=== PATIENT | female | born 1995 | race Caucasian/White ===

== ENCOUNTER → 2019-07-19 | Outpatient (REF) | payer BC ==
[~2019-07-19] MED LIST: IRON27TA2 PO; PRENTAB55 PO; TUMS500C PO; ZANT150T40 PO
== END ==
LOC: M LAB REF 17:13
PROVIDERS: ATTEND Advanced Practice Midwife
DX: Z34.83 Encounter for supervision of other normal pregnancy, third trimester (principal)

== ENCOUNTER 2019-08-10 05:22 | Inpatient (IN) | payer SELFPAY ==
[~2019-08-10] VITALS: Ht 154.9 cm; Wt 73.0 kg
[2019-08-10] VITALS (8 sets, daily range): BP systolic 107–125; BP diastolic 56–75
[2019-08-10] MEDS ORDERED: BICITRA 30ML SOLN UDC PO ONE (06:00)
[2019-08-10] MEDS ORDERED: LR 800 ML IV ONE (06:00)
[2019-08-10] MEDS ORDERED: ceFAZolin SOD 2 GM in IV 1 EA IV ONE (06:00)
[2019-08-10 06:24] LABS: HEMATOCRIT 31.1 % (36.0-47.0); HEMOGLOBIN 9.8 g/dl (12.0-15.5); MEAN CORPUSCULAR HEMOGLOBIN 27.1 pg (27.0-33.0); MEAN CORPUSCULAR HGB CONC 31.5 g/dl (32.0-36.5); MEAN CORPUSCULAR VOLUME 85.9 fl (80.0-96.0); PLATELET COUNT, AUTOMATED 275 10^3/uL (150-450); RED BLOOD COUNT 3.62 10^6/uL (4.00-5.40); WHITE BLOOD COUNT 8.1 10^3/uL (4.0-10.0)
[2019-08-10] MEDS ORDERED: LR 1,000 ML IV SCH ×3 (07:00→10:00)
[2019-08-10] MEDS ORDERED: OXYTOCIN INJ 10 UNITS/ML VIAL (J2590) As Ordered ONE (07:06)
[2019-08-10] MEDS ORDERED: MORPHINE PRES-FREE INJ 10 MG/10 ML VIAL (J2274) As Ordered ONE (07:15)
[2019-08-10] MEDS ORDERED: ACETAMINOPHEN 1000MG 100ML IV BTL (OFIRMEV) (J0131 PER 10MG) As Ordered ONE (08:08)
[2019-08-10] MEDS ORDERED: KETOROLAC 60 MG/2 ML VIAL (J1885) As Ordered ONE (08:31)
[2019-08-10] MEDS: PRENATAL VITAMINS CHEWABLE TABLET PO SCH (09:00)
[2019-08-10] MEDS ORDERED: OXYTOCIN DRIP 30 UNITS in IV 1 EA IV SCH (09:02)
[2019-08-10] MEDS ORDERED: NORCO, ANEXSIA 5/325MG TABLET (HYDROcodone/ACETAMINOPHEN) PO PRN ×2 (09:15→09:30)
[2019-08-10] MEDS ORDERED: MEPERIDINE INJ 25 MG/ML VIAL (J2175) IM PRN (09:15)
[2019-08-10] MEDS ORDERED: OXYTOCIN 30 UNITS IN 0.9% NaCl 500ML IV BAG (J2590) As Ordered ONE (09:25)
[2019-08-10] MEDS ORDERED: ONDANSETRON 4MG/2ML VIAL (J2405) IV PRN ×2 (09:30→10:00)
[2019-08-10] MEDS ORDERED: fentaNYL 100 MCG/2 ML INJECTION (J3010) IV PRN ×2 (09:30→10:38)
[2019-08-10] MEDS ORDERED: METOCLOPRAMIDE INJ 10MG/2ML VIAL (J2765) IV PRN (09:30)
[2019-08-10] MEDS ORDERED: fentaNYL 100 MCG/2 ML INJECTION (J3010) As Ordered ONE (09:37)
[2019-08-10] MEDS ORDERED: ONDANSETRON 4MG/2ML VIAL (J2405) As Ordered ONE (09:44)
[2019-08-10] MEDS ORDERED: MEASLES,MUMPS,RUBELLA VACCINE INJ (MMR-II) (90707) SC SCH (10:00)
[2019-08-10] MEDS ORDERED: RHOGAM 300 MCG (1500 IU) INJ (J2790) IM SCH (10:00)
[2019-08-10] MEDS ORDERED: DOCUSATE SODIUM 100 MG CAP PO PRN (10:00)
--- NOTE | 2019-08-10 10:10 | RO ---
DATE OF PROCEDURE: 08/10/2019 PREPROCEDURE DIAGNOSES: 39 weeks, prior section times one, undesired fertility. POSTPROCEDURE DIAGNOSES: 39 weeks, prior section times one, undesired fertility. PROCEDURE: Repeat low transverse section and bilateral tubal ligation. SURGEON: Dr. Klever Zavaleta [employer] ARCHITECT: Dieudonne Markham DO ANESTHESIA: Spinal. ESTIMATED BLOOD LOSS: 500 mL. URINE OUTPUT: 100 mL. FINDINGS: 7 pound 5 ounce female infant, scores 8 and 9, peritoneal window in the lower uterine segment. Normal fallopian tubes and ovaries. DESCRIPTION OF PROCEDURE: The patient was taken to the operating room where spinal anesthesia was induced. She was prepped and draped in sterile fashion in the supine position. A Flores catheter was placed. A Pfannenstiel skin incision was made with the scalpel and carried through to the fascia. The fascia was nicked and extended. The fascia was dissected off the rectus muscles. The peritoneal cavity was entered. A bladder flap was created. Lower uterine segment was noted to have a peritoneal window where the uterus could be seen directly through the lower uterine segment. An incision was created and membranes ruptured of clear fluid. The was delivered from the vertex position without difficulty. The cord was doubly clamped and cut. The infant was handed off to the awaiting nurses. The placenta was expressed. The uterus was cleared of clots and debris. The uterine incision was closed with #0 Vicryl in a running locked fashion. Due to the nature of the lower uterine segment, a second imbricating layer was not placed; however, several [id number] sutures were placed for hemostasis. Attention was turned to the fallopian tubes. The fallopian tubes were grasped at their mid portion with a [place] clamp. A window was created in the broad ligament. A free tie of #3-0 chromic suture was placed around a segment of tube on either side of the [place] clamp. A knuckle of tube was excised bilaterally. The uterus was placed back into the abdominal cavity. The peritoneum was closed with #2-0 Vicryl in a running fashion. The fascia was closed with #0 Vicryl in a running fashion. The deep layer was irrigated and closed with #2-0 chromic. The skin was closed with #4-0 Monocryl subcuticular sutures. Sponge, instrument and needle counts were correct. Dieudonne Markham DO, assisted in all aspects of the procedure from beginning to end. He helped create each layer of the incision. He helped with the hysterotomy and helped close all layers.
[2019-08-10] MEDS: NORCO, ANEXSIA 5/325MG TABLET (HYDROcodone/ACETAMINOPHEN) PO PRN ×3 (11:30→23:34)
[2019-08-10] MEDS ORDERED: HYDROMORPHONE HCL 0.5 MG/ 0.5 ML SYRINGE (J1170 PER 1) IV PRN ×3 (12:30→12:45)
[2019-08-10] MEDS ORDERED: HYDROmorphone HCL 2 MG/ML 1ML VIAL (J1170) IV PRN (12:30)
[2019-08-10] MEDS: KETOROLAC 30 MG/ML VIAL (J1885) IV SCH ×2 (14:57→20:33)
[2019-08-11 02:16] VITALS: BP 113/63
[2019-08-11] MEDS: KETOROLAC 30 MG/ML VIAL (J1885) IV SCH (03:18)
[2019-08-11 06:02] VITALS: BP 116/61
[2019-08-11 07:28] LABS: HEMATOCRIT 28.1 % (36.0-47.0); HEMOGLOBIN 8.6 g/dl (12.0-15.5); MEAN CORPUSCULAR HEMOGLOBIN 26.9 pg (27.0-33.0); MEAN CORPUSCULAR HGB CONC 30.6 g/dl (32.0-36.5); MEAN CORPUSCULAR VOLUME 87.8 fl (80.0-96.0); PLATELET COUNT, AUTOMATED 198 10^3/uL (150-450); WHITE BLOOD COUNT 8.6 10^3/uL (4.0-10.0)
[2019-08-11] MEDS: PRENATAL VITAMINS CHEWABLE TABLET PO SCH (07:40)
[2019-08-11] MEDS: NORCO, ANEXSIA 5/325MG TABLET (HYDROcodone/ACETAMINOPHEN) PO PRN ×4 (07:41→22:41)
[2019-08-11] MEDS: SIMETHICONE 80 MG CHEW TAB PO PRN ×2 (10:39→17:48)
[2019-08-11] MEDS: IBUPROFEN 800 MG TAB PO SCH ×2 (10:43→18:41)
[2019-08-11 13:07] VITALS: BP 114/63
[2019-08-11 14:11] VITALS: BP 119/64
[2019-08-11 17:34] VITALS: BP 121/66
[2019-08-11 23:00] VITALS: BP 117/61
[2019-08-11] MEDS ORDERED: MOM 30ML SUSPENSION UDC PO PRN (23:00)
[2019-08-12 02:00] VITALS: BP 119/57
[2019-08-12] MEDS: IBUPROFEN 800 MG TAB PO SCH ×2 (03:19→10:41)
[2019-08-12 05:29] VITALS: BP 114/63
[2019-08-12] MEDS: NORCO, ANEXSIA 5/325MG TABLET (HYDROcodone/ACETAMINOPHEN) PO PRN (05:37)
[2019-08-12] MEDS ORDERED: HYDR-4571 PO (08:53)
[2019-08-12] MEDS ORDERED: IBUP80TA PO (08:53)
[2019-08-12] MEDS ORDERED: COLA100C5 PO (08:53)
[2019-08-12] MEDS: PRENATAL VITAMINS CHEWABLE TABLET PO SCH (10:41)
--- NOTE | 2019-08-13 06:16 | DSES ---
DATE OF ADMISSION: 08/10/2019 DATE OF DISCHARGE: 08/12/2019 DISCHARGE DIAGNOSIS: 1. Repeat section with undesired fertility. PROCEDURES PERFORMED: 1. section. 2. Bilateral tubal ligation. 3. Spinal anesthesia. CONDITION ON DISCHARGE: Stable. HISTORY AND HOSPITAL COURSE: Ms. Stanley presented for scheduled section at 39 weeks which was uncomplicated productive of live born female , Apgars 8 and 9, weight was 7 pounds 5 ounces. Estimated blood loss was 500 mL. She did well post operatively. By postoperative day 2 she had met all discharge criteria. She was discharged home in stable condition. PHYSICAL EXAMINATION ON THE DAY OF DISCHARGE: VITAL SIGNS: Stable. She is afebrile. ABDOMEN: Her abdomen was soft, appropriately tender. Her incision was dressed. Extremities: Negative for calf tenderness. DISCHARGE MEDICATIONS: - Vicodin - ibuprofen DISCHARGE INSTRUCTIONS: 1. She was instructed to remove her dressing in 5-7 days. and 05/07 days. 2. She was to remain on pelvic rest. 3. Follow up in 2 weeks for incision check. 4. Report severe pain, heavy vaginal bleeding, fever or incisional issues.
== END 2019-08-12 14:37 | disposition home or self-care (01) | DRG 540 ==
LOC: M LDI 05:22 → EDUNIT# 07:30 → M OBS 10:55
PROVIDERS: ADMIT Specialist; ATTEND Specialist
PROC: 0UB70ZZ Excision of Bilateral Fallopian Tubes, Open Approach (ICD-10-PCS; 2019-08-10)
PROC: 10D00Z1 Extraction of Products of Conception, Low, Open Approach (ICD-10-PCS; principal; 2019-08-10 07:30)
DX: O34.211 Maternal care for low transverse scar from previous cesarean delivery (principal); Z3A.39 39 weeks gestation of pregnancy; Z37.0 Single live birth; Z30.2 Encounter for sterilization; O99.02 Anemia complicating childbirth; D64.9 Anemia, unspecified

== ENCOUNTER → 2019-12-30 | Outpatient (CLI) | payer OTHER, SELFPAY ==
[~2019-12-30] MED LIST changes: +COLA100C5 PO; +HYDR-4571 PO; +IBUP80TA PO
[2019-12-30 17:40] LABS: BASO % 0.4 % (0.0-1.0); EOS # 0.1 10^3/uL (0.0-0.5); EOS % 1.2 % (0.0-3.0); HEMATOCRIT 40.6 % (36.0-47.0); HEMOGLOBIN 12.7 g/dl (12.0-15.5); LYMPH # 1.5 10^3/uL (1.5-5.0); LYMPH % 19.5 % (24.0-44.0); MEAN CORPUSCULAR HEMOGLOBIN 27.3 pg (27.0-33.0); MEAN CORPUSCULAR HGB CONC 31.3 g/dl (32.0-36.5); MEAN CORPUSCULAR VOLUME 87.1 fl (80.0-96.0); MONO # 0.3 10^3/uL (0.0-0.8); MONO % 4.6 % (0.0-5.0); NEUTROPHILS # 5.5 10^3/uL (1.5-8.5); PLATELET COUNT, AUTOMATED 377 10^3/uL (150-450); RED BLOOD COUNT 4.66 10^6/uL (4.00-5.40); WHITE BLOOD COUNT 7.4 10^3/uL (4.0-10.0)
[2019-12-30 17:51] LABS: ALBUMIN 4.1 GM/DL (3.2-5.2); ALT/SGPT 30 U/L (12-78); BILIRUBIN,TOTAL 0.6 MG/DL (0.2-1.0); BLOOD UREA NITROGEN 12 MG/DL (7-18); CALCIUM LEVEL 8.7 MG/DL (8.5-10.1); CARBON DIOXIDE LEVEL 28 MEQ/L (21-32); CHLORIDE LEVEL 109 MEQ/L (98-107); CREATININE FOR GFR 0.69 MG/DL (0.55-1.30); FREE T4 1.02 NG/DL (0.76-1.46); GLOMERULAR FILTRATION RATE > 60.0 (>60); GLUCOSE, FASTING 83 MG/DL (70-100); IRON (FE) 36 UG/DL (50-170); POTASSIUM SERUM 4.2 MEQ/L (3.5-5.1); SODIUM LEVEL 143 MEQ/L (136-145); THYROID STIMULATING HORMONE 0.748 uIU/ML (0.358-3.740); TOTAL IRON BINDING CAPACITY 448 UG/DL (250-450); TOTAL PROTEIN 7.6 GM/DL (6.4-8.2)
== END ==
LOC: M ADAMS 15:57
PROVIDERS: ATTEND Physician Assistant
DX: D64.9 Anemia, unspecified (principal); R53.83 Other fatigue

== ENCOUNTER → 2020-03-21 | Outpatient (CLI) | payer OTHER | LOC: M LABSMTC 12:57 | PROVIDERS: ATTEND Family Medicine | DX: Z11.59 Encounter for screening for other viral diseases (principal) | CPT/HCPCS: C8903; U0002 ==

== ENCOUNTER 2020-05-16 09:27 | Emergency (ER) | payer BC, OTHER ==
[~2020-05-16] VITALS: Ht 154.9 cm; Wt 58.6 kg
[2020-05-16] MEDS ORDERED: NS 1,000 ML IV ONE (09:45)
[2020-05-16 10:29] LABS: BASO % 0.4 % (0.0-1.0); EOS # 0.2 10^3/uL (0.0-0.5); EOS % 2.5 % (0.0-3.0); HEMATOCRIT 36.4 % (36.0-47.0); HEMOGLOBIN 11.6 g/dl (12.0-15.5); LYMPH # 2.2 10^3/uL (1.5-5.0); LYMPH % 25.1 % (24.0-44.0); MEAN CORPUSCULAR HEMOGLOBIN 28.9 pg (27.0-33.0); MEAN CORPUSCULAR HGB CONC 31.9 g/dl (32.0-36.5); MEAN CORPUSCULAR VOLUME 90.5 fl (80.0-96.0); MONO # 0.6 10^3/uL (0.0-0.8); MONO % 6.5 % (0.0-5.0); NEUTROPHILS # 5.8 10^3/uL (1.5-8.5); NEUTROPHILS % 65.3 % (36.0-66.0); PLATELET COUNT, AUTOMATED 330 10^3/uL (150-450); RED BLOOD COUNT 4.02 10^6/uL (4.00-5.40); WHITE BLOOD COUNT 8.9 10^3/uL (4.0-10.0)
[2020-05-16] MEDS ORDERED: PRED20TA (10:32)
[2020-05-16] MEDS ORDERED: CEFD1CAP8 (10:32)
[2020-05-16] MEDS ORDERED: PHEN-815 PO (10:32)
[2020-05-16 10:46] LABS: BLOOD UREA NITROGEN 9 MG/DL (7-18); CALCIUM LEVEL 8.7 MG/DL (8.5-10.1); CARBON DIOXIDE LEVEL 25 MEQ/L (21-32); CHLORIDE LEVEL 109 MEQ/L (98-107); CREATININE FOR GFR 0.65 MG/DL (0.55-1.30); GLOMERULAR FILTRATION RATE > 60.0 (>60); GLUCOSE, FASTING 85 MG/DL (70-100); POTASSIUM SERUM 3.5 MEQ/L (3.5-5.1); SODIUM LEVEL 142 MEQ/L (136-145)
[2020-05-16 10:51] LABS: HCG, SERUM QUALITATIVE NEGATIVE (NEGATIVE)
[2020-05-16 12:02] VITALS: BP 115/59
--- NOTE | 2020-05-16 12:20 | REP ---
CHEST, SINGLE VIEW: There is no evidence of acute infiltrate. No pleural effusion is seen. The heart is normal in size. The mediastinal silhouette is unremarkable. The visualized osseous structures are intact. IMPRESSION: No acute pulmonary disease. Electronically Signed by Vineet Guzman MD 05/18/2020 11:09 P
--- NOTE | 2020-05-17 16:02 | ECGEPIP ---
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
== END 2020-05-16 12:10 | disposition home or self-care (01) ==
LOC: M ED 09:27
DX: R05 Cough (principal); R51 Headache; B34.9 Viral infection, unspecified; D64.9 Anemia, unspecified; J30.2 Other seasonal allergic rhinitis; Z79.899 Other long term (current) drug therapy; Z91.018 Allergy to other foods; Z88.6 Allergy status to analgesic agent; Z88.5 Allergy status to narcotic agent

== ENCOUNTER 2021-05-10 18:34 | Emergency (ER) | payer BC, OTHER ==
[~2021-05-10] VITALS: Ht 152.4 cm; Wt 52.8 kg
[~2021-05-10 18:34] MED LIST changes: +CEFD1CAP8; +PHEN-815 PO; +PRED20TA
[2021-05-10 18:36] VITALS: BP 115/66
[2021-05-10] MEDS ORDERED: PROM50TA4 PO (18:52)
[2021-05-10] MEDS ORDERED: PEPT262T2 PO (18:52)
[2021-05-10] MEDS ORDERED: VITMTA PO (18:52)
[2021-05-10] MEDS ORDERED: NS 1,000 ML IV ONE (19:45)
[2021-05-10] MEDS ORDERED: ONDANSETRON 4MG/2ML VIAL IV ONE (19:45)
[2021-05-10] MEDS ORDERED: KETOROLAC 30 MG/ML 1ML VIAL IV ONE (19:45)
[2021-05-10 20:07] LABS: BASO % 0.1 % (0.0-1.0); HEMATOCRIT 39.5 % (36.0-47.0); HEMOGLOBIN 12.8 g/dl (12.0-15.5); LYMPH # 0.5 10^3/uL (1.5-5.0); LYMPH % 7.3 % (24.0-44.0); MEAN CORPUSCULAR HEMOGLOBIN 30.2 pg (27.0-33.0); MEAN CORPUSCULAR HGB CONC 32.4 g/dl (32.0-36.5); MEAN CORPUSCULAR VOLUME 93.2 fl (80.0-96.0); MONO # 0.2 10^3/uL (0.0-0.8); MONO % 3.2 % (2.0-8.0); NEUTROPHILS # 6.6 10^3/uL (1.5-8.5); PLATELET COUNT, AUTOMATED 247 10^3/uL (150-450); RED BLOOD COUNT 4.24 10^6/uL (4.00-5.40); WHITE BLOOD COUNT 7.4 10^3/uL (4.0-10.0)
[2021-05-10 20:32] LABS: ALBUMIN 3.6 GM/DL (3.2-5.2); BILIRUBIN,DIRECT 0.2 MG/DL (0.0-0.2); BILIRUBIN,TOTAL 0.9 MG/DL (0.2-1.0); TOTAL PROTEIN 6.8 GM/DL (6.4-8.2)
[2021-05-10] MEDS ORDERED: ISOVUE-370 76% 100ML VIAL As Ordered ONE (20:58)
--- NOTE | 2021-05-10 21:44 | REPVR ---
PROCEDURE INFORMATION: Exam: CT Abdomen And Pelvis With Contrast Exam date and time: 05/10/2021 9:05 PM Age: 25 years old Clinical indication: Abdominal pain; Localized; Right; Additional info: Right sided abd pain TECHNIQUE: Imaging protocol: Computed tomography of the abdomen and pelvis with contrast. Radiation optimization: All CT scans at this facility use at least one of these dose optimization techniques: automated exposure control; mA and/or kV adjustment per patient size (includes targeted exams where dose is matched to clinical indication); or iterative reconstruction. Contrast material: ISOVUE 370; Contrast volume: 100 ml; Contrast route: INTRAVENOUS (IV); COMPARISON: CR PORTABLE CHEST X-RAY 05/16/2020 11:09 AM FINDINGS: Liver: Normal. No mass. Gallbladder and bile ducts: Normal. No calcified stones. No ductal dilation. Pancreas: Normal. No ductal dilation. Spleen: Normal. No splenomegaly. Adrenal glands: Normal. No mass. Kidneys and ureters: Normal. No hydronephrosis. Stomach and bowel: Unremarkable. No obstruction. No mucosal thickening. Appendix: No evidence of appendicitis. Intraperitoneal space: There is minimal fluid in the cul-de-sac most likely physiologic. Clinical correlation to exclude other causes of cul-de-sac fluid suggested. Vasculature: Unremarkable. No abdominal aortic aneurysm. Lymph nodes: Unremarkable. No enlarged lymph nodes. Urinary bladder: Unremarkable as visualized. Reproductive: Unremarkable as visualized. Bones/joints: Unremarkable. No acute fracture. Soft tissues: Unremarkable. IMPRESSION: No acute findings. Electronically signed by: Fredo Herrera On 05/10/2021 21:43:18 PM
[2021-05-10] MEDS ORDERED: ONDA4TAB6 PO (22:06)
== END 2021-05-10 22:39 | disposition home or self-care (01) ==
LOC: M ED 18:34
DX: A08.4 Viral intestinal infection, unspecified (principal); J30.9 Allergic rhinitis, unspecified; Z91.018 Allergy to other foods; Z88.6 Allergy status to analgesic agent; Z88.5 Allergy status to narcotic agent
CPT/HCPCS: 74177; 80047; 80076; 81001; 83605; 83690; 84702; 85025; 96361; 96374; 96375; 99284; J1885; J2405; Q9967

== ENCOUNTER → 2024-07-20 | Outpatient (CLI) | payer BC ==
[~2024-07-20] MED LIST changes: -CEFD1CAP8; +CEFD1CAP9; +ONDA-282 PO; +PEPT262T2 PO; +PROM50TA4 PO; +VITMTA PO
[2024-07-20 09:16] LABS: BASO % 0.3 % (0.0-1.0); EOS # 0.1 10^3/uL (0.0-0.5); EOS % 0.8 % (0.0-3.0); HEMATOCRIT 36.5 % (36.0-47.0); LYMPH # 1.9 10^3/uL (1.5-5.0); LYMPH % 32.7 % (24.0-44.0); MEAN CORPUSCULAR HEMOGLOBIN 29.9 pg (27.0-33.0); MEAN CORPUSCULAR HGB CONC 32.9 g/dl (32.0-36.5); MEAN CORPUSCULAR VOLUME 90.8 fl (80.0-96.0); MONO # 0.6 10^3/uL (0.0-0.8); MONO % 9.3 % (2.0-8.0); NEUTROPHILS # 3.4 10^3/uL (1.5-8.5); NEUTROPHILS % 56.7 % (36.0-66.0); PLATELET COUNT, AUTOMATED 324 10^3/uL (150-450); RED BLOOD COUNT 4.02 10^6/uL (4.00-5.40); WHITE BLOOD COUNT 5.9 10^3/uL (4.0-10.0)
[2024-07-20 09:36] LABS: IRON (FE) 112 UG/DL (50-170); PERCENT SATURATION 28.9 % (13.2-45.0); TOTAL IRON BINDING CAPACITY 388 UG/DL (250-425)
[2024-07-20 09:37] LABS: ALBUMIN 3.9 G/DL (3.2-5.2); ALKALINE PHOSPHATASE 60 U/L (46-116); ALT/SGPT 10 U/L (7.0-40); AST/SGOT < 8 U/L (<34); BILIRUBIN,TOTAL 0.7 MG/DL (0.3-1.2); BLOOD UREA NITROGEN 11 MG/DL (9-23); CALCIUM LEVEL 9.5 MG/DL (8.5-10.1); CARBON DIOXIDE LEVEL 27 MMOL/L (20-31); CHLORIDE LEVEL 107 MMOL/L (98-107); CHOLESTEROL LEVEL 160 MG/DL (<200); CHOLESTEROL RISK RATIO 3.01 (<5); GLOMERULAR FILTRATION RATE > 60.0 (>60); GLUCOSE, FASTING 81 MG/DL (60-100); LDL CHOLESTEROL 95.2 MG/DL (<100); POTASSIUM SERUM 4.3 MMOL/L (3.5-5.1); SODIUM LEVEL 138 MMOL/L (136-145); TRIGLYCERIDES LEVEL 59 MG/DL (<150)
[2024-07-20 09:40] LABS: THYROID STIMULATING HORMONE 0.717 uIU/ML (0.55-4.78); VITAMIN B12 LEVEL 341 PG/ML (211-911)
== END ==
LOC: M LAB 08:21
PROVIDERS: ATTEND Nurse Practitioner Family
DX: F41.9 Anxiety disorder, unspecified (principal)